=== PATIENT | male | born 1945 | race Caucasian/White ===

== ENCOUNTER 2019-08-10 06:58 | Day surgery (SDC) | payer MEDICARE, BC ==
[2019-08-10] MEDS: Polymyxin B/Trimethoprim 10 ML Bottle EYELF SCH ×4 (07:17→09:02)
[2019-08-10] MEDS: Brimonidine 0.2% Ophth Soln 5 ML Bottle EYELF SCH ×4 (07:22→09:02)
--- NOTE | 2019-08-10 07:22 | PCM.PREANE ---
Preanesthetic Assessment - Anesthesia/Transfusion/Family Hx Anesthesia History: Prior Anesthesia Without Reaction Family History of Anesthesia Reaction: No Transfusion History: No Prior Transfusion(s) Intubation History: Unknown - Review of Systems General: No Symptoms Pulmonary: No Symptoms (Quit smoking 1977) Cardiovascular: No Symptoms (on HCTZ:) Gastrointestinal: No Symptoms Neurological: Numbness (on occasion all extremities) Other: Reports: Easy Bruising, Diabetes (yesterday 599 bs= 107) - Physical Assessment NPO Status Date: 08/09/19 NPO Status Time: 18:00 Vital Signs: HR: 67 BP: 150/83 Resp: 16 Sat: 97% Temp: 97.7 Height: 1.73 m Weight: 90.718 kg ASA Class: 2 Mental Status: Alert & Oriented x3 Airway Class: Mallampati = 2 Dentition: Reports: Dentures (upper) Thyro-Mental Finger Breadths: 3 Mouth Opening Finger Breadths: 3 ROM/Head Extension: Full Lungs: Clear to Auscultation, Normal Respiratory Effort Cardiovascular: Regular Rate, Regular Rhythm, No Murmurs - Allergies Allergies/Adverse Reactions: Allergies Allergy/AdvReac Type Severity Reaction Status Date / Time No Known Allergies Allergy Verified 08/07/19 14:42 - Anesthesia Plan Pre-Op Medication Ordered: None - Acknowledgements Anesthesia Type Planned: MAC Pt an Appropriate Candidate for the Planned Anesthesia: Yes Alternatives and Risks of Anesthesia Discussed w Pt/Guardian: Yes Pt/Guardian Understands and Agrees with Anesthesia Plan: Yes PreAnesthesia Questionnaire - HOME MEDS Home Medications: Home Meds Potassium Chloride 40 meq PO DAILY 08/07/19 [History] hydroCHLOROthiazide [Hydrochlorothiazide] 12.5 mg PO DAILY 08/07/19 [History] metFORMIN [Glucophage XR] 500 mg PO BIDMEALS 08/07/19 [History] - CURRENT (IN HOUSE) MEDS Current Meds: Current Medications Brimonidine Tartrate (Alphagan 0.2% Ophth Soln) 0 ml EYELF ASDIRECTED [facility] Stop: 08/10/19 18:00 Cefuroxime Sodium (Zinacef) 0 mg EYELF ASDIRECTED [facility] Stop: 08/10/19 18:00 Lidocaine HCl (Xylocaine-Mpf 1%) 1 ml INJECT ASDIRECTED [facility] Stop: 08/10/19 18:00 Phenylephrine HCl (Ton-Synephrine 2.5% Ophth Soln) 0 ml EYELF ASDIRECTED [facility] Stop: 08/10/19 18:00 Pilocarpine HCl (Pilocar 4% Ophth Soln) 0 ml EYELF ASDIRECTED [facility] Stop: 08/10/19 18:00 Polymyxin/Trimethoprim Sulfate (Polytrim Ophth Soln) 0 ml EYELF ASDIRECTED [facility] Stop: 08/10/19 18:00 Tetracaine HCl (Tetracaine 0.5% Steri-Unit Heidi) 0 ml EYELF ASDIRECTED [facility] Stop: 08/10/19 18:00 Tropicamide (Mydriacyl 1% Ophth Soln) 0 ml EYELF ASDIRECTED [facility] Stop: 08/10/19 18:00
[2019-08-10] MEDS: Phenylephrine 2.5% Ophth Soln 2 ML Bot EYELF SCH ×6 (07:26→08:57)
[2019-08-10] MEDS: Tropicamide 1% Ophth Soln 15 ML Bottle EYELF SCH ×4 (07:30→08:02)
[2019-08-10] MEDS: Tetracaine HCl/PF 0.5% 4 ML Bottle EYELF SCH ×3 (08:11→08:57)
[2019-08-10] MEDS: Lidocaine 1% PF 2 ML SDV INJECT SCH ×2 (08:47→08:58)
[2019-08-10] MEDS: Cefuroxime 10 MG/ML SYRINGE EYELF SCH ×2 (08:58→09:01)
[2019-08-10] MEDS: Pilocarpine 4% Ophth Soln 15 ML Bot EYELF SCH ×2 (08:58→09:02)
--- NOTE | 2019-08-10 09:03 | PCM48HPAN ---
Post Anesthesia Note - EVALUATION WITHIN 48HRS OF ANESTHETIC Vital Signs in Normal Range: Yes Patient Participated in Evaluation: Yes Respiratory Function Stable: Yes Airway Patent: Yes Cardiovascular Function Stable: Yes Hydration Status Stable: Yes Pain Control Satisfactory: Yes Nausea and Vomiting Control Satisfactory: Yes Mental Status Recovered: Yes Vital Signs: Last Vital Signs Temp 36.5 C 08/10/19 07:05 Pulse 67 08/10/19 07:05 Resp 16 08/10/19 07:05 BP 150/83 H 08/10/19 07:05 Pulse Ox 97 08/10/19 07:05
== END 2019-08-10 09:13 | disposition home or self-care (01) ==
LOC: JD.SDS 06:58
PROVIDERS: ATTEND Ophthalmology
DX: E11.36 Type 2 diabetes mellitus with diabetic cataract (principal); H25.813 Combined forms of age-related cataract, bilateral; E78.00 Pure hypercholesterolemia, unspecified; M19.90 Unspecified osteoarthritis, unspecified site; Z87.891 Personal history of nicotine dependence; Z79.84 Long term (current) use of oral hypoglycemic drugs
CPT/HCPCS: 66984; J0697; J2001; C1780

== ENCOUNTER 2019-09-07 07:00 | Day surgery (SDC) | payer MEDICARE, BC ==
[~2019-09-07 07:00] MED LIST: Cefuroxime 10 MG/ML SYRINGE EYERT SCH; Lidocaine 1% PF 2 ML SDV INJECT SCH; Pilocarpine 4% Ophth Soln 15 ML Bot EYERT SCH
[2019-09-07] MEDS: Polymyxin B/Trimethoprim 10 ML Bottle EYERT SCH ×3 (07:19→08:57)
[2019-09-07] MEDS: Brimonidine 0.2% Ophth Soln 5 ML Bottle EYERT SCH ×3 (07:25→08:57)
[2019-09-07] MEDS: Phenylephrine 2.5% Ophth Soln 2 ML Bot EYERT SCH ×5 (07:31→08:34)
[2019-09-07] MEDS: Tropicamide 1% Ophth Soln 15 ML Bottle EYERT SCH ×4 (07:35→08:18)
--- NOTE | 2019-09-07 07:40 | PCM.PREANE ---
Preanesthetic Assessment - Anesthesia/Transfusion/Family Hx Anesthesia History: Prior Anesthesia Without Reaction Family History of Anesthesia Reaction: No Transfusion History: No Prior Transfusion(s) Intubation History: Unknown - Review of Systems General: No Symptoms Pulmonary: No Symptoms Cardiovascular: No Symptoms Gastrointestinal: No Symptoms Neurological: No Symptoms Other: Reports: Diabetes - Physical Assessment NPO Status Date: 09/06/19 NPO Status Time: 18:00 Vital Signs: Last Vital Signs Temp 36.7 C 09/07/19 07:05 Pulse 62 09/07/19 07:05 Resp 16 09/07/19 07:05 BP 141/70 H 09/07/19 07:05 Pulse Ox 95 09/07/19 07:05 Height: 1.73 m Weight: 91.626 kg ASA Class: 2 Mental Status: Alert & Oriented x3 Airway Class: Mallampati = 2 Dentition: Reports: Dentures Thyro-Mental Finger Breadths: 3 Mouth Opening Finger Breadths: 3 ROM/Head Extension: Full Lungs: Clear to Auscultation, Normal Respiratory Effort Cardiovascular: Regular Rate, Regular Rhythm - Allergies Allergies/Adverse Reactions: Allergies Allergy/AdvReac Type Severity Reaction Status Date / Time No Known Allergies Allergy Verified 09/06/19 14:43 - Blood Blood Available: No Product(s) Available: None - Anesthesia Plan Pre-Op Medication Ordered: None - Acknowledgements Anesthesia Type Planned: MAC Pt an Appropriate Candidate for the Planned Anesthesia: Yes Alternatives and Risks of Anesthesia Discussed w Pt/Guardian: Yes Pt/Guardian Understands and Agrees with Anesthesia Plan: Yes PreAnesthesia Questionnaire - HOME MEDS Home Medications: Home Meds Potassium Chloride 40 meq PO DAILY 08/07/19 [History] hydroCHLOROthiazide [Hydrochlorothiazide] 12.5 mg PO DAILY 08/07/19 [History] metFORMIN [Glucophage XR] 500 mg PO BIDMEALS 08/07/19 [History] - CURRENT (IN HOUSE) MEDS Current Meds: Current Medications Brimonidine Tartrate (Alphagan 0.2% Ophth Soln) 0 ml EYERT ASDIRECTED JEREMIA[facility] Stop: 09/07/19 23:00 Last Admin: 09/07/19 07:25 Dose: 1 drop Cefuroxime Sodium (Zinacef) 0 mg EYERT ASDIRECTED JEREMIA[facility] Stop: 09/07/19 23:00 Lidocaine HCl (Xylocaine-Mpf 1%) 1 ml INJECT ASDIRECTED JEREMIAH Stop: 09/07/19 23:00 Phenylephrine HCl (Ton-Synephrine 2.5% Ophth Soln) 0 ml EYERT ASDIRECTED [facility] Stop: 09/07/19 23:00 Last Admin: 09/07/19 07:31 Dose: 1 drop Pilocarpine HCl (Pilocar 4% Ophth Soln) 0 ml EYERT ASDIRECTED [facility] Stop: 09/07/19 23:00 Polymyxin/Trimethoprim Sulfate (Polytrim Ophth Soln) 0 ml EYERT ASDIRECTED [facility] Stop: 09/07/19 23:00 Last Admin: 09/07/19 07:19 Dose: 1 drop Tetracaine HCl (Tetracaine 0.5% Steri-Unit Heidi) 0 ml EYERT ASDIRECTED JEREMIA[facility] Stop: 09/07/19 23:00 Tropicamide (Mydriacyl 1% Ophth Soln) 0 ml EYERT ASDIRECTED [facility] Stop: 09/07/19 23:00
[2019-09-07] MEDS: Tetracaine HCl/PF 0.5% 4 ML Bottle EYERT SCH ×2 (08:23→08:43)
--- NOTE | 2019-09-07 13:26 | PCM48HPAN ---
Post Anesthesia Note - EVALUATION WITHIN 48HRS OF ANESTHETIC Vital Signs in Normal Range: Yes Patient Participated in Evaluation: Yes Respiratory Function Stable: Yes Airway Patent: Yes Cardiovascular Function Stable: Yes Hydration Status Stable: Yes Pain Control Satisfactory: Yes Nausea and Vomiting Control Satisfactory: Yes Mental Status Recovered: Yes Vital Signs: Last Vital Signs Temp 37.1 C 09/07/19 09:00 Pulse 61 09/07/19 09:00 Resp 16 09/07/19 09:00 BP 131/65 09/07/19 09:00 Pulse Ox 95 09/07/19 09:00 - COMMENTS/OBSERVATIONS Free Text/Narrative:: no anesthesia complications noted
== END 2019-09-07 09:08 | disposition home or self-care (01) ==
LOC: JD.SDS 07:00
PROVIDERS: ATTEND Ophthalmology
DX: E11.36 Type 2 diabetes mellitus with diabetic cataract (principal); H25.811 Combined forms of age-related cataract, right eye; H02.831 Dermatochalasis of right upper eyelid; H02.834 Dermatochalasis of left upper eyelid; E78.00 Pure hypercholesterolemia, unspecified; M19.90 Unspecified osteoarthritis, unspecified site; Z87.891 Personal history of nicotine dependence; Z98.42 Cataract extraction status, left eye; Z96.1 Presence of intraocular lens; Z79.84 Long term (current) use of oral hypoglycemic drugs; Z79.899 Other long term (current) drug therapy
CPT/HCPCS: 66984; J0697; J2001; C1780

== ENCOUNTER 2023-12-08 06:20 | Day surgery (SDC) | payer MEDICARE, OTHER ==
[~2023-12-08 06:20] MED LIST changes: +Acetaminophen 325 MG Tab PO ONE; -Cefuroxime 10 MG/ML SYRINGE EYERT SCH; -Lidocaine 1% PF 2 ML SDV INJECT SCH; -Pilocarpine 4% Ophth Soln 15 ML Bot EYERT SCH; +Pregabalin 25 MG Cap PO ONE; +Sodium Chloride 0.9% 10 ML Syringe FLUSH PRN; +Sodium Chloride 0.9% 10 ML Syringe FLUSH SCH; +oxyCODONE ER 10 MG TAB.ER PO ONE
[2023-12-08] MEDS: Lactated Ringers 1,000 ML IV SCH (06:45)
[2023-12-08] MEDS ORDERED: Ropivacaine 0.5% 5 MG/ML 30 ML SDV ONE (06:52)
[2023-12-08] MEDS ORDERED: Propofol 200 MG/20 ML SDV ONE (06:53)
[2023-12-08] MEDS ORDERED: Lidocaine 1% 5 ML VIAL ONE (06:55)
[2023-12-08] MEDS ORDERED: Sodium Chloride 0.9% 100 ML ONE (07:21)
[2023-12-08] MEDS ORDERED: Phenylephrine 1% 10 MG/ML SDV ONE (07:25)
[2023-12-08] MEDS ORDERED: ceFAZolin 2 GM Vial ONE (07:26)
[2023-12-08] MEDS ORDERED: Neostigmine Methylsulfate 10 MG/10 ML MDV ONE (08:00)
[2023-12-08] MEDS ORDERED: Dexamethasone 4 MG/ML 5 ML MDV ONE (08:18)
[2023-12-08] MEDS ORDERED: EPINEPHrine 1 MG/ML SDV ONE (08:18)
[2023-12-08] MEDS ORDERED: dexmedeTOMIDine HCl 200 MCG/2 ML SDV ONE (08:18)
[2023-12-08] MEDS ORDERED: Lactated Ringers 1,000 ML ONE (08:29)
[2023-12-08] MEDS ORDERED: HYDROmorphone 0.5 MG/0.5 ML Syringe IVPUSH PRN (08:37)
[2023-12-08] MEDS ORDERED: fentaNYL 100 MCG/2 ML SDV IVPUSH PRN (08:37)
[2023-12-08] MEDS: Tranexamic Acid 1,000 MG/10 ML Vial ONE (08:57)
[2023-12-08] MEDS: Vancomycin 1 GM SDV ONE (08:57)
[2023-12-08] MEDS: Morphine 8 MG, EPINEPHrine 0.3 MG, Cefuroxime 750 MG, Ketorolac 30 MG, Sodium Chloride ... PRN (08:57)
[2023-12-08] MEDS: Triamcinolone Acetonide 40 MG/ML 1 ML SDV ONE (08:59)
[2023-12-08] MEDS: Bupivacaine 0.25% 10 ML SDV ONE (08:59)
[2023-12-08] MEDS: Pregabalin 25 MG Cap PO ONE (09:12)
[2023-12-08] MEDS: oxyCODONE ER 10 MG TAB.ER PO ONE (09:13)
[2023-12-08] MEDS: Acetaminophen 325 MG Tab PO ONE (09:14)
[2023-12-08] MEDS: oxyCODONE 5 MG Tab PO PRN (12:02)
[2023-12-09] MEDS ORDERED: Morphine 8 MG, EPINEPHrine 0.3 MG, Cefuroxime 750 MG, Ketorolac 30 MG, Sodium Chloride ... PRN (06:00)
== END 2023-12-08 13:00 | disposition home or self-care (01) ==
LOC: JD.SDS 06:20
PROVIDERS: ATTEND Orthopaedic Surgery
DX: M17.0 Bilateral primary osteoarthritis of knee (principal); E11.51 Type 2 diabetes mellitus with diabetic peripheral angiopathy without gangrene; E11.42 Type 2 diabetes mellitus with diabetic polyneuropathy; I10 Essential (primary) hypertension; E78.2 Mixed hyperlipidemia; F41.9 Anxiety disorder, unspecified; I25.10 Atherosclerotic heart disease of native coronary artery without angina pectoris; E66.9 Obesity, unspecified; Z68.35 Body mass index [BMI] 35.0-35.9, adult; Z87.891 Personal history of nicotine dependence; Z79.82 Long term (current) use of aspirin; Z79.899 Other long term (current) drug therapy
CPT/HCPCS: 01402; 64447; 73560-26-LT; 73560-LT; 97110-GP; 97161-GP; 99100; A9270-GY; C1713; C1776; J0171; J0665; J0690; J0697; J1100; J1885; J2270; J2371; J2704; J2710; J2795; J3301; J3370; J3490; J7120